=== PATIENT | female | born 1990 | race Caucasian/White ===

== ENCOUNTER 2018-01-22 16:32 | Emergency (ER) | payer OTHER ==
[2018-01-22 16:40] VITALS: BP 116/66
--- NOTE | 2018-01-22 16:46 | ED Physician Documentation ---
PD HPI LOWER EXT INJURY - Stated complaint Stated Complaint: NAIL VS RIGHT FOOT - Chief complaint Chief Complaint: Ext Problem - History obtained from History obtained from: Patient - History of Present Illness PD HPI LOW EXT INJURY LOCATION: Right, Sole / plantar Type of injury: Puncture wound (she stepped on nail in board that went through shoe bottom and into foot. She had been feeding the chickens in their chicken coup, so contaminated ground with chicken poop.) Where injury occurred: Home Timing - onset: Today Timing - details: Abrupt onset (she did clean it) Worsened by: Palpating Associated symptoms: No: Weakness, Numbness, Tingling Similar symptoms before: Has not had sx before Recently seen: Not recently seen Review of Systems Constitutional: denies: Fever, Chills Nose: denies: Rhinorrhea / runny nose, Congestion Throat: denies: Sore throat Respiratory: denies: Cough GI: denies: Nausea, Vomiting, Diarrhea Neurologic: denies: Focal weakness, Numbness PD PAST MEDICAL HISTORY - Past Medical History Cardiovascular: None Respiratory: None Neuro: None Endocrine/Autoimmune: None - Present Medications Home Medications: Ambulatory Orders Medication Instructions Recorded Confirmed Sulfamethox/Trimeth 800/160 1 each PO BID #10 tablet 01/22/18 [Bactrim Ds 800/160] - Allergies Allergies/Adverse Reactions: Allergies Allergy/AdvReac Type Severity Reaction Status Date / Time fluoxetine [From Prozac] Allergy Unknown Verified 01/22/18 16:40 PD ED PE NORMAL - Vitals Vital signs reviewed: Yes - General General: Alert and oriented X 3, No acute distress, Well developed/nourished - Derm Derm: Normal color, Warm and dry - Extremities Extremities: Other (right ball of the foot with small puncture wound without bleeding nor FB noted. It is sealed up initially and does not open with palpation, giving concern for trapped germs. ) - Neuro Neuro: Alert and oriented X 3, No motor deficit, No sensory deficit, Normal speech Results - Vitals Vitals: Oxygen O2 Source Room air PD MEDICAL DECISION MAKING - Sepsis Event Vital Signs: Oxygen O2 Source Room air Departure - Departure Disposition: 01 Home, Self Care Clinical Impression: Puncture wound of plantar aspect of foot Qualifiers: Encounter type: initial encounter Laterality: right Qualified Code(s): S91.331A - Puncture wound without foreign body, right foot, initial encounter Condition: Stable Record reviewed to determine appropriate education?: Yes Instructions: ED Wound Puncture General Follow-Up: Blanche Booth PA [Primary Care Provider] - Prescriptions: Sulfamethox/Trimeth 800/160 [Bactrim Ds 800/160] 1 each PO BID #10 tablet Comments: Soak her cleanse the wound to 3 times a day for the next couple of days to promote drainage. Cover with a Band-Aid to keep it clean. Bactrim antibiotic twice daily for the next 5 days to reduce chance of infection since it was a contaminated wound injury. Recheck if signs of infection. Tylenol ibuprofen if needed for pains. You did receive a tetanus booster here which will be good for 10 years. Discharge Date/Time: 01/22/18 17:59
[2018-01-22] MEDS ORDERED: TETANUS/DIPHTHERIA/PERTUSSIS 0.5 ML SYRINGE IM ONE (17:02)
[2018-01-22] MEDS ORDERED: SULFAMETH/TRIMETH DS 800/160 MG TABLET PO STA (17:02)
[2018-01-22] MEDS ORDERED: IBUPROFEN 600 MG TABLET PO STA (17:02)
[2018-01-22] MEDS ORDERED: BACITRACIN OINT TOP ONE (17:25)
== END 2018-01-22 17:59 | disposition home or self-care (01) ==
LOC: ED 16:32
DX: S91.331A Puncture wound without foreign body, right foot, initial encounter (principal); W45.0XXA Nail entering through skin, initial encounter; Y92.008 Other place in unspecified non-institutional (private) residence as the place of occurrence of the external cause; Z23 Encounter for immunization
CPT/HCPCS: 90471; 90715; 99283; A9270